=== PATIENT | male | born 1985 ===

== ENCOUNTER → 2023-11-24 12:16 | Outpatient (REF) | payer BC, SELFPAY ==
[2023-11-24 13:26] LABS: ALT (SGPT) 188 U/L (0-50); AST (SGOT) 112 U/L (17-59); Albumin 5.2 g/dl (3.5-5.0); Alkaline Phosphatase 94 U/L (38-126); Blood Urea Nitrogen 10 mg/dl (9-20); Calcium 10.1 mg/dl (8.4-10.2); Carbon Dioxide 25 mmol/L (22-30); Chloride 101 mmol/L (98-107); Glucose 92 mg/dl (70-99); HDL Cholesterol 57 mg/dl; LDL Cholesterol, Calculated 191 mg/dl; Potassium 4.1 mmol/L (3.5-5.1); Sodium 143 mmol/L (135-145); Total Cholesterol 265 mg/dl (50-199); Total Protein 7.8 g/dl (6.3-8.2); Triglyceride 89 mg/dl (10-149); Very Low Density Lipoprotein 17 mg/dl (0-30); eGFR > 60.00
== END ==
LOC: REG 12:16
PROVIDERS: ATTENDING PHYSICIAN Internal Medicine Cardiovascular Disease
DX: E78.5 Hyperlipidemia, unspecified (principal)
CPT/HCPCS: 36415; 80053; 80061